=== PATIENT | male | born 1955 | race Caucasian/White ===

== ENCOUNTER 2018-10-07 12:44 | Inpatient (IN) ==
[2018-10-07] MEDS ORDERED: DUONEB NEB STA (12:55)
--- NOTE | 2018-10-07 13:05 | ED.PDOC ---
General ED Provider: Dr. GOVIND SÁNCHEZ Chief Complaint: Respiratory Complaint Stated Complaint: SHORTNESS OF BREATH. Complains of shortness of air, coughing up white phlegm, heart starts racing with exertion, runny nose Time Seen by Physician: 13:15 Mode of Arrival: Walk-In Information Source: Patient Exam Limitations: No limitations Nursing and Triage Documentation Reviewed and Agree: Yes Does patient meet sepsis criteria?: No System Inflammatory Response Syndrome: Not Applicable Sepsis Protocol: For patient's 13 years and over: Temp is 96.8 and below OR 101 and greater Pulse >90 BPM Resp >20/minute Acutely Altered Mental Status Are patient's symptoms suggestive of a new infection, such as: -Pneumonia -Skin, Soft Tissue -Endocarditis -UTI -Bone, Joint Infection -Implantable Device -Acute Abdominal Infection -Wound Infection -Meningitis -Blood Stream Catheter Infection -Unknown Respiratory Complaint Exam - Shortness of Air Complaint/Exam Onset/Duration: several days Symptoms Are: Worse Timing: Constant Initial Severity: Moderate Current Severity: Moderate Character: Reports: Dyspnea at rest, Dyspnea on exertion, Orthopnea Aggravating: Reports: Movement, Deep breaths, Recumbent position, Smoke exposure Alleviating: Reports: None Associated Signs and Symptoms: Reports: Wheezing, Nasal congestion. Denies: Cough, Chest pain with cough, Chest pain, Fever, Chills, Diaphoresis, Dizziness , Calf pain, Calf swelling, Edema, Rapid breathing, Labored breathing, Decreased intake Related History: Denies: Similar episode History of Healthcare-Acquired Pneumonia: No Pulmonary Embolism Risk Factors: Reports: None Cardiac Risk Factors: Reports: Smoking Pseudomonas Risk Factors: Reports: Chronic Lung Disease Tuberculosis Risk Factors: Reports: None Home Oxygen Use: No Recent Stress Test: No Recent Echo/LV Function: No Respiratory Distress: Moderate Stridor Present: No Tracheal Deviation: No Subcutaneous Emphysema: No Accessory Muscle Use: No Retractions: Not Present Diminished Breath Sounds: Yes Prolonged Expiratory Phase: No Unable to Speak Full Sentences: No Fatigue: Yes Leg Swelling: No Fani's Sign Present: No Grunting Respirations: No Kussmaul Respirations: No Differential Diagnoses: COPD Exacerbation, Pneumonia, Bronchitis Review of Systems - Review Of Systems Constitutional: Reports: No symptoms Eyes: Reports: No symptoms Ears, Nose, Mouth, Throat: Reports: No symptoms Respiratory: Reports: Cough, Short of air, Wheezing Cardiac: Reports: No symptoms GI: Reports: No symptoms : Reports: No symptoms Musculoskeletal: Reports: No symptoms Skin: Reports: No symptoms Neurological: Reports: No symptoms Endocrine: Reports: No symptoms Hematologic/Lymphatic: Reports: No symptoms All Other Systems: Reviewed and Negative Past Medical History - Past Medical History Previously Healthy: Yes Endocrine: Reports: None Cardiovascular: Reports: None Respiratory: Reports: None Hematological: Reports: None Gastrointestinal: Reports: None Genitourinary: Reports: None Neuro/Psych: Reports: None Musculoskeletal: Reports: None Cancer: Reports: None - Surgical History General Surgical History: Reports: Unknown - Family History Family History: Reports: Unknown - Social History Smoking Status: Current every day smoker, Heavy tobacco smoker Hx Substance Use: No Alcohol Screening: None Physical Exam - Physical Exam Appearance: Ill-appearing, Thin Ill-appearing: Mild Pain Distress: None Eyes: LYDIA, EOMI, Conjunctiva clear ENT: Ears normal, Nose normal, Oropharynx normal Neck: Supple Respiratory: Breath sounds equal, Breath sounds diminished, Wheezes Cardiovascular: RRR, Pulses normal, No rub, No murmur GI/: Soft, Nontender, No masses, Bowel sounds normal, No Organomegaly Musculoskeletal: Normal strength, ROM intact, No edema, No calf tenderness Skin: Warm, Dry, Normal color Neurological: Sensation intact, Motor intact, Reflexes intact, Cranial nerves intact, Alert, Oriented Interpretation - Radiology Interpretation Radiology Results: Positive Exam Interpreted: CXR Xray Comments: thickening suggestive of inflamation and pneumonia Physician Notification - Case Discussed Physician Notified: Dr Teague Time of Notification: 15:10 (Ok with Admit) Critical Care Note - Critical Care Note Total Time (mins): 60 Course - Course Hematology/Chemistry: 10/08/18 04:47 10/08/18 04:47 Orders, Labs, Meds: Lab Review 10/07/18 10/07/18 10/07/18 12:53 13:10 13:10 WBC 6.80 RBC 4.18 L Hgb 12.3 L Hct 37.1 L MCV 88.8 MCH 29.4 MCHC 33.2 RDW Coeff of Gael 12.7 Plt Count 320 Immature Gran % (Auto) 0.3 Neut % (Auto) 66.2 Lymph % (Auto) 20.6 [place] % (Auto) 6.9 Eos % (Auto) 5.4 Baso % (Auto) 0.6 Immature Gran # (Auto) 0.0 Neut # (Auto) 4.5 Lymph # (Auto) 1.4 [place] # (Auto) 0.5 Eos # (Auto) 0.4 Baso # (Auto) 0.0 Puncture Site R radial O2 Saturation 92.0 L ABG pH 7.387 ABG pCO2 46.1 H ABG pO2 67.0 L ABG HCO3 27.7 H ABG Total CO2 29 H ABG Base Excess 3 H Arapn Test + O2 Delivery Device Oxygen Liter Flow FiO2 % 21.0 Sodium 137.9 Potassium 4.27 Chloride 99.5 Carbon Dioxide 29.6 Anion Gap 13.07 BUN 11.8 Creatinine 0.71 Estimated GFR (MDRD) 111.00 BUN/Creatinine Ratio 16.61 Glucose 105.1 Lactic Acid Calcium 9.15 Magnesium 2.00 Total Bilirubin 0.49 AST 36.5 ALT 27.5 Alkaline Phosphatase 86.9 NT-Pro-B Natriuret Pep Total Protein 7.91 Albumin 4.03 Globulin 3.88 Albumin/Globulin Ratio 1.03 Triglycerides Cholesterol LDL Cholesterol, Calc VLDL Cholesterol HDL Cholesterol Cholesterol/HDL Ratio Procalcitonin TSH Free T4 Influ A Molecular Assay Influ B Molecular Assay 10/07/18 10/07/18 10/07/18 13:10 13:10 13:10 WBC RBC Hgb Hct MCV MCH MCHC RDW Coeff of Gael Plt Count Immature Gran % (Auto) Neut % (Auto) Lymph % (Auto) [place] % (Auto) Eos % (Auto) Baso % (Auto) Immature Gran # (Auto) Neut # (Auto) Lymph # (Auto) [place] # (Auto) Eos # (Auto) Baso # (Auto) Puncture Site O2 Saturation ABG pH ABG pCO2 ABG pO2 ABG HCO3 ABG Total CO2 ABG Base Excess Arpan Test O2 Delivery Device Oxygen Liter Flow FiO2 % Sodium Potassium Chloride Carbon Dioxide Anion Gap BUN Creatinine Estimated GFR (MDRD) BUN/Creatinine Ratio Glucose Lactic Acid 1.19 Calcium Magnesium Total Bilirubin AST ALT Alkaline Phosphatase NT-Pro-B Natriuret Pep 170.000 H Total Protein Albumin Globulin Albumin/Globulin Ratio Triglycerides Cholesterol LDL Cholesterol, Calc VLDL Cholesterol HDL Cholesterol Cholesterol/HDL Ratio Procalcitonin < 0.05 TSH Free T4 Influ A Molecular Assay Influ B Molecular Assay 10/07/18 10/07/18 10/07/18 13:10 13:10 13:30 WBC RBC Hgb Hct MCV MCH MCHC RDW Coeff of Gael Plt Count Immature Gran % (Auto) Neut % (Auto) Lymph % (Auto) [place] % (Auto) Eos % (Auto) Baso % (Auto) Immature Gran # (Auto) Neut # (Auto) Lymph # (Auto) [place] # (Auto) Eos # (Auto) Baso # (Auto) Puncture Site O2 Saturation ABG pH ABG pCO2 ABG pO2 ABG HCO3 ABG Total CO2 ABG Base Excess Arpan Test O2 Delivery Device Oxygen Liter Flow FiO2 % Sodium Potassium Chloride Carbon Dioxide Anion Gap BUN Creatinine Estimated GFR (MDRD) BUN/Creatinine Ratio Glucose Lactic Acid Calcium Magnesium Total Bilirubin AST ALT Alkaline Phosphatase NT-Pro-B Natriuret Pep Total Protein Albumin Globulin Albumin/Globulin Ratio Triglycerides 106.1 Cholesterol 156.7 LDL Cholesterol, Calc 104 VLDL Cholesterol 21 HDL Cholesterol 31.2 L Cholesterol/HDL Ratio 5.0 Procalcitonin TSH 1.390 Free T4 1.37 Influ A Molecular Assay Negative by naat Influ B Molecular Assay Negative by naat 10/07/18 15:29 WBC RBC Hgb Hct MCV MCH MCHC RDW Coeff of Gael Plt Count Immature Gran % (Auto) Neut % (Auto) Lymph % (Auto) [place] % (Auto) Eos % (Auto) Baso % (Auto) Immature Gran # (Auto) Neut # (Auto) Lymph # (Auto) [place] # (Auto) Eos # (Auto) Baso # (Auto) Puncture Site R radial O2 Saturation 97.0 ABG pH 7.374 ABG pCO2 44.6 ABG pO2 92.0 ABG HCO3 26 ABG Total CO2 27 ABG Base Excess 1 Arpan Test + O2 Delivery Device Nc Oxygen Liter Flow 2.00 FiO2 % Sodium Potassium Chloride Carbon Dioxide Anion Gap BUN Creatinine Estimated GFR (MDRD) BUN/Creatinine Ratio Glucose Lactic Acid Calcium Magnesium Total Bilirubin AST ALT Alkaline Phosphatase NT-Pro-B Natriuret Pep Total Protein Albumin Globulin Albumin/Globulin Ratio Triglycerides Cholesterol LDL Cholesterol, Calc VLDL Cholesterol HDL Cholesterol Cholesterol/HDL Ratio Procalcitonin TSH Free T4 Influ A Molecular Assay Influ B Molecular Assay Orders Category Date Time Status ADMIT PATIENT INPATIENT .TO [facility] (MONITORED BED) ADMISSION 10/07/18 16: 00 Active ABG DRAW REQUEST Stat CARDIO 10/07/18 12:54 Completed ABG DRAW REQUEST Stat CARDIO 10/07/18 15:29 Completed EKG-(ED ONLY) Stat CARDIO 10/07/18 12:53 Completed NEBULIZER TREATMENT Routine CARDIO 10/07/18 15:40 Active NEBULIZER TREATMENT Stat CARDIO 10/07/18 12:56 Completed NEBULIZER TREATMENT Stat CARDIO 10/07/18 15:33 Completed OXYGEN Routine CARDIO 10/07/18 14:27 Completed OXYGEN Routine CARDIO 10/07/18 15:34 Active INTAKE & OUTPUT Q8HR CARE 10/07/18 15:34 Active TELEMETRY MONITORING TELE CARE 10/07/18 16:01 Active VITAL SIGNS Q8HR CARE 10/07/18 15:35 Active REGULAR DIET DIETARY 10/07/18 Dinner Ordered IV [ED IV/MEDIPORT/POWERPORT] .ONCE EMERGENCY 10/07/18 12:53 Active ABG Stat LAB 10/07/18 12:53 Completed ABG Stat LAB 10/07/18 15:29 Completed BLOOD CULTURE Stat LAB 10/07/18 13:50 Results CBC W/ AUTO DIFF DAILY@0600 LAB 10/08/18 04:47 Completed CBC W/ AUTO DIFF DAILY@0600 LAB 10/09/18 06:00 Ordered CBC W/ AUTO DIFF Stat LAB 10/07/18 13:10 Completed CMP [COMPREHENSIVE METABOLIC PANEL] Stat LAB 10/07/18 13:10 Completed COMPREHENSIVE METABOLIC PANEL DAILY@0600 LAB 10/08/18 04:47 Completed COMPREHENSIVE METABOLIC PANEL DAILY@0600 LAB 10/09/18 06:00 Ordered FLU A & B MOLECULAR [FLU A/B MOLECULAR] Stat LAB 10/07/18 13:30 Completed LACTIC ACID Stat LAB 10/07/18 13:10 Completed MAGNESIUM Stat LAB 10/07/18 13:10 Completed NT-PROBNP Stat LAB 10/07/18 13:10 Completed PROCALCITONIN Stat LAB 10/07/18 13:10 Completed RAPID STREP SCREEN [MOLECULAR GROUP A STREP] Stat LAB 10/07/18 13:30 Completed SPUTUM CULTURE Stat LAB 10/07/18 17:04 Results 0.9 % Sodium Chloride [Saline Flush] MEDS 10/07/18 12:55 Active 1 syr IVF PRN PRN Azithromycin [Zithromax] MEDS 10/08/18 09:00 Active 500 mg PO DAILY Azithromycin [Zithromax] MEDS 10/07/18 15:21 Discontinued 500 mg PO ONCE STA Budesonide [Pulmicort 0.5 mg/2 ml] MEDS 10/07/18 15:33 Discontinued 1 vial NEB ONCE STA Ceftriaxone Sodium [Rocephin] MEDS 10/07/18 15:36 Discontinued 1 gm .ROUTE .STK-MED ONE Ceftriaxone Sodium [Rocephin] 1 gm MEDS 10/08/18 09:00 Active 0.9 % Sodium Chloride [Sodium Chloride] 50 ml IV DAILY Ceftriaxone Sodium [Rocephin] 1 gm MEDS 10/07/18 15:20 Discontinued 0.9 % Sodium Chloride [Sodium Chloride] 50 ml IV ONCE Hydrocortisone Sod Succ/Pf [Solu-Cortef 100 mg] MEDS 10/07/18 15:56 Discontinued 100 mg IVP ONCE STA Hydrocortisone Sod Succ/Pf [Solu-Cortef 250 mg] MEDS 10/08/18 00:00 Active 125 mg IVP Q6HR Ipratropium/Albuterol Neb [Duoneb] MEDS 10/07/18 12:55 Discontinued 1 vial NEB ONCE STA Ipratropium/Albuterol Neb [Duoneb] MEDS 10/07/18 20:00 Active 1 vial NEB RTQID Potassium Chloride in 0.9%NaCl [Sodium Chloride 0.9%- MEDS 10/07/18 16:00 Discontinued KCl 20 Meq] 1,000 ml IV 70 mls/hr RESUSCITATION STATUS Routine OTHERS 10/07/18 15:34 Ordered CHEST, 1V AP ONLY Stat RADS 10/07/18 12:53 Completed Medications Generic Name Dose Route Start Last Admin Trade Name Freq PRN Reason Stop Dose Admin Albuterol/Ipratropium 1 vial 10/07/18 20:00 10/08/18 19:40 Duoneb NEB 1 vial RTQID DASH Administration Azithromycin 500 mg 10/08/18 09:00 10/08/18 09:57 Zithromax PO 10/11/18 08:59 500 mg DAILY DASH Administration Hydrocortisone Sodium Succinate 125 mg 10/08/18 00:00 10/08/18 17:55 Solu-Cortef 250 Mg IVP 125 mg Q6HR DASH Administration Ceftriaxone Sodium 1 gm/ 50 mls @ 75 mls/hr 10/08/18 09:00 10/08/18 08:38 Sodium Chloride IV 10/11/18 08:59 75 mls/hr DAILY DASH Administration Sodium Chloride 1 syr 10/07/18 12:55 10/08/18 12:14 Saline Flush IVF 1 syr PRN PRN Administration To flush IV Sodium Chloride 1 syr 10/08/18 13:00 10/08/18 21:32 Saline Flush IVF 1 syr Q8HR DASH Administration Discontinued Medications Generic Name Dose Route Start Last Admin Trade Name Freq PRN Reason Stop Dose Admin Albuterol/Ipratropium 1 vial 10/07/18 12:55 10/07/18 13:24 Duoneb NEB 10/07/18 12:56 1 vial ONCE STA Administration Azithromycin 500 mg 10/07/18 15:21 10/07/18 15:55 Zithromax PO 10/07/18 15:22 500 mg ONCE STA Administration Budesonide 1 vial 10/07/18 15:33 10/07/18 15:57 Pulmicort 0.5 Mg/2 Ml NEB 10/07/18 15:34 1 vial ONCE STA Administration Hydrocortisone Sodium Succinate 100 mg 10/07/18 15:56 10/07/18 15:57 Solu-Cortef 100 Mg IVP 10/07/18 15:57 100 mg ONCE STA Administration Ceftriaxone Sodium 1 gm/ 50 mls @ 75 mls/hr 10/07/18 15:20 10/07/18 15:53 Sodium Chloride IV 10/07/18 15:59 75 mls/hr ONCE STA Administration Potassium Chloride/Sodium Chloride 1,000 mls @ 70 mls/hr 10/07/18 16:00 10/08 08:59 Sodium Chloride 0.9%-Kcl 20 Meq IV Not Given [id number] Vital Signs: Temp Pulse Pulse Resp BP Pulse Ox 10/07/18 16:25 97.9 F 73 72 18 98 10/07/18 12:44 96.6 F L 86 24 119/79 90 L Departure - Departure Time of Disposition: 15:15 (Discussed with Dr Teague) Disposition: ADMITTED INPATIENT Discharge Problem: COPD exacerbation, Pneumonia Condition: Good Pt referred to PMD for follow-up: Yes IPMP verified?: No Allergies/Adverse Reactions: Allergies No Known Allergies Allergy (Verified 10/07/18 12:48) Home Medications: Ambulatory Orders 1 [No Reported Medications] 09/12/15 Disposition Discussed With: Patient, Family
--- NOTE | 2018-10-07 14:35 | DI ---
EXAM: Single view chest COMPARISON: Chest CT from 09/12/2015 HISTORY: Short of breath FINDINGS: There is a patchy area of increased air space density in the lateral aspect of the right u pper lung field not seen on earlier chest CT. Lung lake are hyper expanded. Cardiac and mediastinal silhouettes show no acute abnormality. No acute soft tissue or osseous abnormalities. IMPRESSION: 1. Minimal increased lung markings in the lateral aspect of the right upper lung field. This may re present some mild atelectasis or early infiltrate. Would recommend follow-up to document resolution. 2. Chronic obstructive pulmonary disease.
[2018-10-07] MEDS ORDERED: ROCEPHIN 1 GM in SODIUM CHLORIDE 50 ML IV STA (15:20)
[2018-10-07] MEDS ORDERED: ZITHROMAX PO STA (15:21)
[2018-10-07] MEDS ORDERED: SOLU-CORTEF 100 MG IVP STA ×2 (15:30→15:56)
[2018-10-07] MEDS ORDERED: PULMICORT 0.5 MG/2 ML NEB STA (15:33)
[2018-10-07] MEDS ORDERED: ROCEPHIN ONE (15:36)
[2018-10-07 16:39] VITALS: BMI 18.9
[2018-10-07] MEDS: SODIUM CHLORIDE 0.9%-KCL 20 MEQ 1,000 ML IV SCH (16:56)
[2018-10-07] MEDS: DUONEB NEB SCH (20:12)
[2018-10-08] MEDS: SOLU-CORTEF 250 MG IVP SCH ×5 (00:50→23:45)
[2018-10-08] MEDS: DUONEB NEB SCH ×4 (05:00→19:40)
[2018-10-08] MEDS: ROCEPHIN 1 GM in SODIUM CHLORIDE 50 ML IV SCH (08:38)
[2018-10-08] MEDS: SODIUM CHLORIDE 0.9%-KCL 20 MEQ 1,000 ML IV SCH (08:59)
[2018-10-08] MEDS: ZITHROMAX PO SCH (09:57)
--- NOTE | 2018-10-08 11:39 | CT ---
EXAM: CT of the chest with and without contrast History: Cough and congestion, short of breath Comparison: Chest radiograph 10/07/2018, chest CT 09/12/2015 Technique: Multiplanar CT images through the thorax were obtained with and without the administratio n of IV contrast Findings: Heart size is normal. Coronary calcifications. No pericardial effusion. Great vessels a re unremarkable. No pathologically enlarged thoracic lymph nodes. There is diffuse bronchial wall t hickening. Emphysema again noted. No pleural fluid and no pneumothorax. Biapical lung scarring aga in noted. Scattered micronodules with tree in bud opacities are new compared to the prior study. Within the visualized upper abdomen, stable small cyst within the liver. No acute osseous abnormalit ies. Chronic compression deformity within the upper thoracic spine. Impression: 1. Diffuse bronchial wall thickening and mild bilateral bronchopneumonia with micronodules. Recomme nd follow-up chest CT in 1-3 months to assure resolution. 2. Emphysema. 3. Coronary artery disease
[2018-10-08 13:41] VITALS: TEMP 97.6
--- NOTE | 2018-10-08 14:51 | PN ---
DATE OF SERVICE: 10/07/18 REASON FOR HOSPITALIZATION: COPD EXACERBATION, PNEUMONIA HISTORY OF PRESENT ILLNESS: 63-year-old white male has been sick for several days with cough, congestion, upper respiratory tract infection type of symptoms according to him but today he got really short of breath with minimal exertion. 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 He is bringing up yellowish to greenish sputum production. No hemoptysis. PAST MEDICAL HISTORY: No medical problems or surgical problems of any significance that require hospitalization in the past. REVIEW OF SYSTEMS: CONSTITUTIONAL: Fatigue and weakness. No night sweats. No malaise, lethargy. Fever and chills a few days ago. HEENT: Eyes: No visual changes. No eye pain. No eye discharge. ENT: No runny nose. No epistaxis. No sinus pain. No sore throat. No odynophagia. No ear pain. No congestion. RESPIRATORY: As mentioned above. Mild pain on coughing with tight feeling in the chest. No hemoptysis. No shortness of breath. CARDIOVASCULAR: Shortness of breath. No angina symptoms. No CHF symptoms. No exertional chest discomfort. No palpitations. No PND. No orthopnea. GASTROINTESTINAL: Appetite has been decreasing for the past couple of days. No abdominal pain. No nausea or vomiting. No diarrhea or constipation. No hematemesis. No hematochezia. GENITOURINARY: No urgency. No frequency. No dysuria. No hematuria. No obstructive symptoms. No discharge. No pain. No significant abnormal bleeding. MUSCULOSKELETAL: No musculoskeletal pain. No joint swelling. No arthritis. NEUROLOGICAL: No headache. No neck pain. No syncope. No seizures. No dizziness. PSYCHIATRIC: Not anxious. No depression. No suicidal thoughts. No homicidal thoughts. SKIN: No rash. No lesions. No wounds. ENDOCRINE: No unexplained weight loss. No weight gain. HEMATOLOGIC/LYMPHATIC: No anemia. No purpura. No petechiae. No prolonged or excessive bleeding. No palpable lymph nodes. PERSONAL/FAMILY/SOCIAL HISTORY: The patient lives alone, smokes more than two packs per day. No alcohol abuse. Works more than 12 hours a day. 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 The patient doesn't have any primary physician here in this area. MEDICATIONS: [id number]: Cough medication, et cetera. There is no regular medicine. ALLERGIES: NKDA PHYSICAL EXAMINATION: GENERAL: The patient is oriented to time, place and person. VITAL SIGNS: Temperature 96.6, pulse 86, respiratory rate 24, BP 119/79, pulse ox 90% on room air. HEENT: Head normocephalic, atraumatic. Eyes: Extraocular muscles are intact. Pupils are equal, round and reactive to light and accommodation. Face is symmetrical. Ears: No lesions. Nose appeared normal. Throat: No exudate or erythema. NECK: Supple. No JVP, no carotid bruit. No lymphadenopathy or thyromegaly. LUNGS: Bilateral decreased breath sounds but good air entry. Percussion note normal. Chest symmetrical. Barrel-shaped chest. HEART: PMI at 5th intercostal space mid clavicular line on auscultation. S1, S2 , no S3. No murmurs. No cyanosis or clubbing. No ascites. Pulses: Dorsalis pedis and posterior tibial pulses +1 bilaterally. ABDOMEN: Soft. Nontender. Bowel sounds active. No CVA tenderness. No mass felt. EXTREMITIES: No pedal edema. Full range of motion of all extremities, equal. NEUROLOGIC: Mental status is normal. Deep tendon reflexes, motor and sensory negative. No focal deficit. Cranial nerves II through XII are grossly intact. No headache, no double vision or headache. SKIN: Dry. Intact. Turgor - Mildly dehydrated. LYMPHATIC: No palpable lymph nodes/no lymphedema. MUSCULOSKELETAL: Normal joints with no swelling. Muscle tone is normal. Chest x-ray showed minimal increased lung markings with possibility of right upper lung infiltrate early with COPD. EKG sinus rhythm. P'Pulmonale indicating pulmonary disease. Lactic acid negative. ABG - p02 67, pc02 46, pH 7.38 with 92% saturation on room air. Hemoglobin 12, hematocrit 37, WBC 6,800, normal differential. MCV 88, creatinine 0.7, BUN 11, potassium 4.2. Liver profile negative. Lactic acid normal. Procalcitonin less than .05. Influenza A and B negative. ASSESSMENT: 1. ACUTE BRONCHITIS LIKELY EARLY PNEUMONIA 2. SEVERE CHRONIC LUNG DISEASE WITH HISTORY OF HEAVY SMOKING 3. ANEMIA, MICROCYTIC 4. BMI 20 PLAN: 1. Start patient on Rocephin, Azithromycin. 2. IV steroids. 3. Nebs treatment. 4. IV fluids. 5. Daily CBC, CMP. 6. Telemetry. 7. Monitor arterial blood gases. 8. PFT. 9. May need an echo to evaluate LV function. 10. According to the patient he has been short of breath more lately. He has been thinking about quitting smoking. Counseling for smoking done. 11. The patient may need workup for anemia. 12. Strongly advised to undergo colonoscopy which he declined right off the bat that he would never have colonoscopy. CONDITION: Stable. TIME SPENT: More than 70 minutes. SPENSER
[2018-10-09] MEDS: DUONEB NEB SCH ×2 (04:38→10:14)
[2018-10-09 05:47] VITALS: BP 106/54
[2018-10-09] MEDS: SOLU-CORTEF 250 MG IVP SCH (05:53)
[2018-10-09] MEDS: ZITHROMAX PO SCH (09:20)
[2018-10-09] MEDS: ROCEPHIN 1 GM in SODIUM CHLORIDE 50 ML IV SCH (09:21)
--- NOTE | 2018-10-09 09:47 | PCM.PROG ---
Attending Provider: ATTENDING PROVIDER[facility] DATE OF SERVICE: 10/09/18 SUBJECTIVE: This 63 year old WHITE/ M was hospitalized 10/07/18 with acute bronchitis/pneumonitis. He had bronchial pneumonia. The patient is a heavy smoker. He is feeling better, up and about. He has no cough, no congestion, in no distress. He has no symptoms of CHF or coronary insufficiency. REVIEW OF SYSTEMS: CONSTITUTIONAL: No night sweats. No fatigue, malaise, lethargy. No fever or chills. HEENT: Eyes: No visual changes. No eye pain. No eye discharge. ENT: No runny nose. No epistaxis. No sinus pain. No odynophagia. No congestion. RESPIRATORY: No cough, no congestion. No hemoptysis. No shortness of breath. CARDIOVASCULAR: No angina symptoms. No CHF symptoms. No atypical chest pain for CAD. No palpitations. No orthopnea.. GASTROINTESTINAL: No abdominal pain. No nausea or vomiting. No diarrhea or constipation. No hematemesis. No hematochezia. GENITOURINARY: No urgency. No frequency. No dysuria. No hematuria. No obstructive symptoms. No discharge. No pain. No significant abnormal bleeding. MUSCULOSKELETAL: No musculoskeletal pain; no joint swelling. NEUROLOGICAL: Awake, alert, oriented to time, place and person. No headache. No neck pain. No syncope. No seizures. No dizziness. PSYCHIATRIC: Not anxious. No depression. No suicidal thoughts. No homicidal thoughts. SKIN: No rash. No lesions. No wounds. ENDOCRINE: No unexplained weight loss. No weight gain. HEMATOLOGIC/LYMPHATIC: No anemia. No purpura. No petechiae. No prolonged or excessive bleeding. No palpable lymph nodes. PHYSICAL EXAMINATION: GENERAL: The patient is awake, alert and oriented, lying in bed in no distress. VITAL SIGNS: Temperature 97.6 F, Pulse 83, Respiratory Rate 22, BP 106/54, Pulse Ox 96% HEENT: Head normocephalic, atraumatic. Eyes: Extraocular muscles are intact. Pupils are equal, round and reactive to light and accommodation. Ears: No lesions. Nose appeared normal. Throat: No exudate or erythema. NECK: Supple. No JVD, no carotid bruit. No lymphadenopathy or thyromegaly. LUNGS: Good air entry. No wheeze. Clear to auscultation. Percussion note normal. Chest symmetrical. HEART: S1, S2, no S3. No murmurs. No cyanosis or clubbing. No ascites. Pulses: Dorsalis pedis and posterior tibial pulses +1 to +2 both sides. ABDOMEN: Soft. Non-tender. Bowel sounds active. No CVA tenderness. No mass felt. EXTREMITIES: No edema. Full range of motion of all extremities, equal. NEUROLOGIC: No focal deficit. Cranial nerves II through XII are grossly intact. No headache, no double vision or headache. SKIN: Warm and dry. Intact. Turgor-normal. LYMPHATIC: No palpable lymph nodes/no lymphedema. MUSCULOSKELETAL: Normal joints with no swelling. Muscle tone is normal. LAB REVIEW: 10/09/18 05:29 10/09/18 05:29 10/09/18 05:29: Sodium 137.3, Potassium 4.13, Chloride 101.6, Carbon Dioxide 24.2, Anion Gap 15.63, BUN 12.2, Creatinine 0.67, Estimated GFR (MDRD) 119.00, BUN/Creatinine Ratio 18.20, Glucose 121.8 H, Calcium 9.02, Total Bilirubin 0.26 , AST 57.4, ALT 42.3, Alkaline Phosphatase 74.9, Total Protein 6.76, Albumin 3.49 L, Globulin 3.27, Albumin/Globulin Ratio 1.06 10/09/18 05:29: WBC 18.00 H D, RBC 3.63 L, Hgb 10.9 L, Hct 32.0 L, MCV 88.2, MCH 30.0, MCHC 34.1, RDW Coeff of Gael 13.1, Plt Count 291, Immature Gran % (Auto ) 0.6, Neut % (Auto) 93.1, Lymph % (Auto) 4.0 L, Miner % (Auto) 2.2, Eos % (Auto ) 0.0, Baso % (Auto) 0.1, Immature Gran # (Auto) 0.1, Neut # (Auto) 16.8 H, Lymph # (Auto) 0.7, Miner # (Auto) 0.4, Eos # (Auto) 0.0, Baso # (Auto) 0.0 ASSESSMENT: 1. Acute bronchial pneumonia clinically a lot better. 2. Abnormal CT scan of chest to be followed in 3 months. 3. Chronic lung disease with history of smoking. 4. Anemia, etiology unknown. 5. BMI 19, underweight. PLAN: 1. Discharge home with Omnicef 300 mg b.i.d. for 7 days. 2. Prednisone 20 mg daily times 5 days. 3. ProAir HFA two puffs as needed. 4. Lipid profile. 5. PSA. 6. A1C. 7. Ferrous Sulfate 325 mg daily for 30 days. 8. No work until released - advised to see me on Monday in followup. 9. Counseling for smoking done. 10. Strongly advised to have followup of CT scan of chest. 11. Colonoscopy advised. 12. Anemia profile. Plan and coordination of the patient's care discussed in the presence of Switchboard Installer and nurse. CONDITION: Stable SCRIBED BY: SHIVANI LEPE Lead Pourer scribed while in presence of service performed by Dr. ADE [facility] on 10/09/18 ([id number])
--- NOTE | 2018-10-09 09:47 | DS ---
DATE OF SERVICE: 10/09/18 FINAL DIAGNOSIS: 1. ACUTE BRONCHOPNEUMONIA 2. SEVERE CHRONIC LUNG DISEASE 3. ABNORMAL CT CHEST, 10/08/18 (F/U IN 3 MONTHS) 4. ANEMIA, ETIOLOGY UNKNOWN ([facility] RE[facility]) 5. LOW BMI (18.9 KG) 6. TONSILLECTOMY 7. CURRENT EVERYDAY SMOKER LAST VITAL SIGNS: Temperature 97.6, pulse 83, respiratory rate 22, BP 106/54, pulse ox 96. DISCHARGE INSTRUCTIONS: Followup appointment with Dr. Teague in his office on 10/12/18 at 1:15 p.m. MEDICATIONS AT DISCHARGE: Albuterol (Proair Hfa), IH two puffs (PRN) TID Cefdinir (Omnicef) 300 mg PO BID x7 DAYS Ferrous Sulfate 325 mg PO DAILY for 30 days Prednisone 20 mg PO BID with food x5 DAYS NEW PRESCRIPTIONS: Albuterol Sulfate [Proair Hfa] 2 puff IH TID PRN #1 puff 10/09/18 Cefdinir [Omnicef] 300 mg PO BID #14 capsule 10/09/18 Ferrous Sulfate 325 mg PO DAILY #30 tablet 10/09/18 Prednisone 20 mg PO BID #10 tablet 10/09/18 DIET INSTRUCTIONS: Healthy Heart ACTIVITY: Get plenty of rest at home. Gradually increase your activity to your toleration. Do not return to work until 10/15/18. SMOKING: Current everyday smoker The patient received teaching/instruction regarding the added risk of continuation of tobacco use poses to his cardiopulmonary health. He has a good understanding of the information presented and verbalized that "it's time to quit smoking." We will offer encouragement/support during follow up in the outpatient setting. DISEASE SPECIFIC EDUCATION: Acute bronchopneumonia Anemia COPD New medications Followup Activity HOSPITAL COURSE: 63-year-old White/ male was hospitalized with acute bronchitis, COPD, near respiratory failure. The patient is a heavy smoker, had bronchial pneumonia treated with Rocephin and nebs. The patient improved within 24 hours. He is up and about, no wheezing. CT scan showed bronchial pneumonia, CAD, and emphysema. PFT showed severe COPD. He was explained about the findings. He is up and about. Lungs practically clear. He works 12 hours a day, advised to rest until I see back on followup. Counseling for smoking done. The patient is discharged on steroids and antibiotics. Condition stable. The patient had echo done which showed normal LV contractility, normal valves. RV cavity enlarged because of lung problems. CAD risk factors discussed. Anemia profile done. Colonoscopy recommended. Condition at discharge stable. TIME SPENT: More than 60 minutes. SPENSER
--- NOTE | 2018-10-09 09:49 | PN ---
CODING FOR BILLING 10/07/18 ADMISSION DAY LEVEL 5 10/08/18 INTERMEDIATE 10/09/18 DISCHARGE MTDD
--- NOTE | 2018-10-09 11:12 | ECHO2D ---
Date of Exam: 10/08/18 Ordering Physician: DR. ADE JONES--HOSPITALIST Room #: 120 Reason for Echo: SOB, COPD, WEAKNESS M-Mode Normal Adult Results LV Dimensions Normal Adult Results AoV Opening excursions >1.6 >1.6 LVEDD-base- 3.5-5.8 3.5 Ao root dimensions 2.0-3.7 3.3 LVESD-base- 3.1-4.6 L. Atrium dimensions 1.9-3.8 3.5 Post. Wall thickness 0.8-1.1 1.1 IV septum (thickness) 0.7-1.2 1.1 Post. Wall excursion 0.72-1.3 NORMAL Septal motion NORMAL Systolic motion R. Ventricular cavity 1.5-2.0 4.5 LVEF 60% 85% Paradoxical septal wall motion NORMAL 2-D : 2-D M Mode Echocardiogram was performed using apical four chamber and left parasternal long and short axis views. Mitral, tricuspid and aortic valves appear to be normal. Contractility of the left ventricle seems to be normal, so is the cavity size. Left atrial cavity size and aortic root appear to be normal. There is no pericardial effusion. There is no thrombus noted in the left ventricular or left aortic cavity. No mitral valve prolapse noted. M-MODE: MV: NORMAL AV: NORMAL TV: NORMAL PV: CHAMBER SIZE: ENLARGED RIGHT VENTRICLE CAVITY WALL MOTION: NORMAL PERICARDIUM: NORMAL INTERPRETATION: 1. ENLARGED RIGHT VENTRICLE CAVITY 2. NORMAL VALVES 3. NORMAL LEFT VENTRICULAR CONTRACTILITY MTDD
--- NOTE | 2018-10-09 12:58 | CM.DICTOOL ---
ADMISSION: 10/07/18 17:09 DISCHARGE: 10/09/18 DATE OF SERVICE: 10/09/18 FINAL DIAGNOSIS ACUTE BRONCHOPNEUMONIA SEVERE CHRONIC LUNG DISEASE ABNORMAL CT CHEST, 10/08/18 (F/U IN 3 MONTHS) ANEMIA, ETIOLOGY UNKNOWN ([facility] RE[facility]) LOW BMI (18.9 KG) TONSILLECTOMY CURRENT EVERYDAY SMOKER LAST VITALS Temp Pulse Resp BP Pulse Ox 97.6 F 83 22 106/54 L 96 10/09/18 05:46 10/09/18 05:46 10/09/18 05:46 10/09/18 05:46 10/09/18 05:46 TAKE THESE MEDICATIONS AT HOME Albuterol (Proair Hfa), IH two puffs (PRN) TID Cefdinir (Omnicef) 300 mg PO BID x7 DAYS Ferrous Sulfate 325 mg PO DAILY for 30 days Prednisone 20 mg PO BID with food x5 DAYS ALLERGIES No Known Allergies Allergy (Verified 10/07/18 12:48) NEW PRESCRIPTIONS: Albuterol Sulfate [Proair Hfa] 2 puff IH TID PRN #1 puff 10/09/18 Cefdinir [Omnicef] 300 mg PO BID #14 capsule 10/09/18 Ferrous Sulfate 325 mg PO DAILY #30 tablet 10/09/18 Prednisone 20 mg PO BID #10 tablet 10/09/18 SMOKING: CURRENT EVERYDAY SMOKER THE PATIENT RECEIVED TEACHING/INSTRUCTION REGARDING THE ADDED RISK A CONTINUATION OF TOBACCO USE POSES TO HIS CARDIOPULMONARY HEALTH. HE HAS A GOOD UNDERSTANDING OF THE INFORMATION PRESENTED AND VERBALIZED THAT "IT'S TIME TO QUIT SMOKING." WE WILL OFFER ENCOURAGEMENT/SUPPORT DURING FOLLOW UP IN THE OUTPATIENT SETTING. DISEASE SPECIFIC EDUCATION: ACUTE BRONCHOPNEUMONIA ANEMIA COPD NEW MEDICATIONS FOLLOW UP ACTIVITY LAB REVIEW: 10/09/18 05:29 10/09/18 05:29 10/09/18 05:29: Sodium 137.3, Potassium 4.13, Chloride 101.6, Carbon Dioxide 24.2, Anion Gap 15.63, BUN 12.2, Creatinine 0.67, Estimated GFR (MDRD) 119.00, BUN/Creatinine Ratio 18.20, Glucose 121.8 H, Calcium 9.02, Total Bilirubin 0.26 , AST 57.4, ALT 42.3, Alkaline Phosphatase 74.9, Total Protein 6.76, Albumin 3.49 L, Globulin 3.27, Albumin/Globulin Ratio 1.06 10/09/18 05:29: WBC 18.00 H D, RBC 3.63 L, Hgb 10.9 L, Hct 32.0 L, MCV 88.2, MCH 30.0, MCHC 34.1, RDW Coeff of Gael 13.1, Plt Count 291, Immature Gran % (Auto ) 0.6, Neut % (Auto) 93.1, Lymph % (Auto) 4.0 L, Lane % (Auto) 2.2, Eos % (Auto ) 0.0, Baso % (Auto) 0.1, Immature Gran # (Auto) 0.1, Neut # (Auto) 16.8 H, Lymph # (Auto) 0.7, Lane # (Auto) 0.4, Eos # (Auto) 0.0, Baso # (Auto) 0.0 PLAN: DISCHARGE HOME TODAY, 10/09/[address] JONES IN HIS OFFICE ON 10/12/18 AT 1:15 P.M. NO HOME MEDICATIONS NEW PRESCRIPTIONS IRON SUPPLEMENTATION (FERROUS SULFATE) 325 MG, TAKE ONE TABLET BY MOUTH FOR 30 DAYS CEFDINIR (OMNICEF) 300 MG, TAKE ONE CAPSULE BY MOUTH TWICE DAILY FOR 7 DAYS ONLY PREDNISONE 20 MG, TAKE ONE TABLET BY MOUTH WITH FOOD TWICE DAILY FOR 5 DAYS ONLY ALBUTEROL (PROAIR HFA), TAKE TWO PUFFS IF NEEDED UP TO THREE TIMES DAILY FOR SHORTNESS OF BREATH OR WHEEZING ACTIVITY GET PLENTY OF REST AT HOME. GRADUALLY INCREASE YOUR ACTIVITY TO YOUR TOLERATION DO NOT RETURN TO WORK UNTIL 10/15/18 DIET HEALTHY HEART SUMMARY THE PATIENT IS ALERT AND ORIENTED X3. HE CURRENTLY RESIDES AT HOME WITH HIS GIRLFRIEND AND ADULT CHILD. HE HAS BEEN INDEPENDENT WITH ADL'S. HE HAS NOT REQUIRED ANY DME, HOME HEALTH OR HOMEMAKING SERVICES PRIOR TO ADMISSION HERE. HE DESIRES TO BE DISCHARGED HOME AND WILL NOT REQUIRE ANY DME AT DISCHARGE. THE [facility] IS INTACT AND HAS NO DECUBITUS ULCERS. HYDRATION AND NUTRITION STATUS ARE BACK TO THE PATIENT'S BASELINE. MR. MENDEZ SAYS HE IS FEELING MUCH BETTER. HE IS AWARE AND AGREEABLE FOR TODAY'S DISCHARGE PLANS. HE WOULD LIKE FOR US TO FOLLOW HIM THROUGH THE OFFICE. WE WILL ACCEPT HIM A NEW PATIENT. CURRENT CODE STATUS FULL CODE ADE JONES M.D.
== END 2018-10-09 13:09 | disposition home or self-care (01) | DRG 194 ==
LOC: ED 12:44 → UNDOADMIN 15:37 → MEDSURG B 15:37 → UNDOADMIN 17:04 → SCU 17:04 → MEDSURG B 17:09
PROVIDERS: ADMIT Internal Medicine; ATTEND Internal Medicine
DX: J18.9 Pneumonia, unspecified organism (principal); J44.1 Chronic obstructive pulmonary disease with (acute) exacerbation; Z68.1 Body mass index [BMI] 19.9 or less, adult; J20.9 Acute bronchitis, unspecified; J98.4 Other disorders of lung; D64.9 Anemia, unspecified; R06.02 Shortness of breath; R05 Cough; R06.00 Dyspnea, unspecified; R06.01 Orthopnea; R09.81 Nasal congestion; R06.2 Wheezing; Z72.0 Tobacco use
CPT/HCPCS: 36415; 80053; 80061; 82607; 82728; 82746; 82803; 83036; 83540; 83550; 83605; 83735; 83880; 84145; 84439; 84443; 84466; 85025; 85045; 87040; 87070; 87502; 87651; 93005; 93010; 94640; 96365; 96375; 99284